=== PATIENT | female | born 1975 ===

== ENCOUNTER 2018-06-13 13:20 | Emergency (ER) | payer OTHER ==
[~2018-06-13] VITALS: Ht 165.1 cm; Wt 77.1 kg
[2018-06-13] MEDS ORDERED: SYNTHROID50 MCG (13:29)
[2018-06-13] MEDS ORDERED: BUPROPION XL300 MG (13:30)
== END 2018-06-13 18:13 | disposition home or self-care (01) ==
LOC: ER 13:20
DX: L50.0 Allergic urticaria (principal)

== ENCOUNTER 2021-05-10 13:43 | Outpatient (CLI) | payer OTHER ==
[~2021-05-10 13:43] MED LIST: BUPROPION XL300 MG; SYNTHROID50 MCG
== END 2021-05-10 13:44 | disposition home or self-care (01) ==
LOC: NUCLEAR 13:43
PROVIDERS: ATTEND Family Medicine Adult Medicine
DX: M81.0 Age-related osteoporosis without current pathological fracture (principal)